=== PATIENT | female | born 1990 | race Caucasian/White ===

== ENCOUNTER 2018-01-05 16:01 | Emergency (ER) | payer OTHER ==
[2018-01-05 16:10] VITALS: O2SAT 97
--- NOTE | 2018-01-05 16:25 | EDPHY ---
H & P Time Seen by Provider: 01/05/18 16:11 HPI/ROS: CHIEF COMPLAINT: Possible blood borne exposure HISTORY OF PRESENT ILLNESS: 27-year-old female immunocompetent female with up- to-date hepatitis a and hepatitis B vaccinations, up-to-date tetanus, no known history of HIV, works as a dental multimedia production assistant, I accidentally sustained a right 5th digit palmar aspect abrasion through her glove from a used solid bore dental cleaning instrument shortly prior to arrival. She was given work comp follow-up information was told to go to the ER 1st. She has the name of the source patient and the source patient if the patient had any known illnesses such as hepatitis and/or HIV and the patient denied. PHYSICAL EXAM (Prior to examination, patient consented to physical exam, hands were washed and my usual and customary physical exam procedures followed) 1) GENERAL: Well-developed, well-nourished, alert and oriented. Appears to be in no acute distress. 2) HEAD: Normocephalic 3) HEENT: sclera anicteric 4) LUNGS: Breathing comfortably. 5) SKIN: Right 5th digit palmar aspect middle phalanx superficial abrasion with no signs of infection. Negative kanavel sign. Smoking Status: Never smoked Constitutional: Initial Vital Signs Temperature (C) 36.7 C 01/05/18 16:07 Heart Rate 89 01/05/18 16:07 Respiratory Rate 16 01/05/18 16:07 Blood Pressure 123/75 H 01/05/18 16:07 O2 Sat (%) 97 01/05/18 16:07 O2 Delivery Mode Room Air Allergies/Adverse Reactions: No Known Allergies Allergy (Unverified 01/05/18 16:07) Home Medications: Medication Instructions Recorded NK [No Known Home Meds] 01/05/18 MDM/Departure - MDM ED Course/Re-evaluation: In consultation with the patient's nurse and charge nurse the [facility] employee protocol blood work was obtained. This will be followed up by her work comp provider. Will hold on post exposure prophylaxis. Patient feels comfortable being discharged. Care of patient under supervision of secondary supervising physician Dr Mario Crabtree - Depart Disposition: Home, Routine, Self-Care Clinical Impression: Exposure to blood-borne pathogen, Right 5th digit abrasion Condition: Good Instructions: Needle Stick Injuries (ED), Abrasion (ED) Additional Instructions: Return to the ER if you develop redness, swelling, discharge, warmth to the wound, red streaks going up your arm, or any other symptoms that concern you. Your work comp provider needs to follow up on the results of the blood work obtained today. Referrals: Follow-up, with your work comp provider in 2 days [Other] - As per Instructions
[2018-01-05 16:41] VITALS: BP 125/89; PULSE 79; RESP 18; TEMP 98.6
[2018-01-05 17:44] LABS: HEPATITIS C ANTIBODY TOTAL NEGATIVE (NEGATIVE); HIV TYPE 1 AND 2 NEGATIVE (NEGATIVE)
== END 2018-01-05 16:35 | disposition home or self-care (01) ==
DX: S60.416A Abrasion of right little finger, initial encounter (principal); Z77.21 Contact with and (suspected) exposure to potentially hazardous body fluids; W22.8XXA Striking against or struck by other objects, initial encounter; Y92.69 Other specified industrial and construction area as the place of occurrence of the external cause; Y99.0 Civilian activity done for income or pay; Y93.89 Activity, other specified
CPT/HCPCS: G0472

== ENCOUNTER 2018-08-31 11:02 | Emergency (ER) | payer OTHER ==
[2018-08-31 11:12] VITALS: BP 115/68
--- NOTE | 2018-08-31 11:47 | EDPHY ---
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 Impacted her left index finger. She is in the ER for post exposure testing. The patient is up-to-date with her hepatitis a and B. Denies history of HI V. The source patient has no documented history of HIV or hepatitis. Had a documented history of herpes, further information unknown. PHYSICAL EXAM (Prior to examination, patient consented to physical exam, hands were washed and my usual and customary physical exam procedures followed) 1) GENERAL: Well-developed, well-nourished, alert and oriented. Appears to be in no acute distress. 2) HEAD: Normocephalic 3) HEENT: sclera anicteric 4) LUNGS: Breathing comfortably. 5) SKIN: Left index finger puncture wound noted with no signs of infection. Negative kanavel. Smoking Status: Never smoked Constitutional: Initial Vital Signs Temperature (C) 37.1 C 08/31/18 11:09 Heart Rate 97 08/31/18 11:09 Respiratory Rate 16 08/31/18 11:09 Blood Pressure 115/68 08/31/18 11:09 O2 Sat (%) 94 08/31/18 11:09 O2 Delivery Mode Room Air Allergies/Adverse Reactions: No Known Allergies Allergy (Verified 08/31/18 11:08) Home Medications: Medication Instructions Recorded NK [No Known Home Meds] 01/05/18 MDM/Departure - MDM ED Course/Re-evaluation: Post exposure protocols were followed, blood work pain. Her work comp provider may follow up with these results. I do not think that initiation post exposure prophylaxis indicated at this time as the patient is lower risk. I saw this patient independently based on established practice protocols. Care of patient under supervision of secondary supervising physician Dr Avila . - Depart Disposition: Home, Routine, Self-Care Clinical Impression: Needle stick injury of finger Qualifiers: Encounter type: initial encounter Qualified Code(s): S61.239A - Puncture wound without foreign body of unspecified finger without damage to nail, initial encounter; W27.3XXA - Contact with needle (sewing), initial encounter; W27.3XXA - Contact with needle (sewing), initial encounter Condition: Good Instructions: Needle Stick Injuries (ED) Additional Instructions: Return to the ER if you develop redness, swelling, discharge, warmth to the wound, red streaks going up your arm, or any other symptoms that concern you. Stand Alone Forms: Work Comp Follow Up Referrals: Follow-up, with your work comp provider in 2 days [Other] - As per Instructions
[2018-08-31 13:31] LABS: HEPATITIS B SURFACE ANTIGEN NEGATIVE (NEGATIVE); HEPATITIS C ANTIBODY TOTAL NEGATIVE (NEGATIVE)
== END 2018-08-31 12:34 | disposition home or self-care (01) ==
DX: S61.231A Puncture wound without foreign body of left index finger without damage to nail, initial encounter (principal); W46.1XXA Contact with contaminated hypodermic needle, initial encounter; Y99.0 Civilian activity done for income or pay; Y92.531 Health care provider office as the place of occurrence of the external cause; Y93.89 Activity, other specified
CPT/HCPCS: G0472